=== PATIENT | male | born 1945 | race Two or more races ===

== ENCOUNTER 2025-06-04 07:52 | Emergency (ER) | payer OTHER, MEDICAID ==
[~2025-06-04] VITALS: Ht 175.3 cm; Wt 95.5 kg
--- NOTE | 2025-06-04 08:22 | ED.PDOC ---
Musculoskeletal HPI Comments 80-year-old male presents here with bleeding to his right knee. Patient had knee replacement to his right knee 2 days ago at outside facility does not know the name of the hospital. He states he was discharged home on same day with no issue. He states he has not been ambulatory. However yesterday he began to have some bleeding to the right knee. He did not call the physician. He states today there was significantly more bleeding and 911 was called. Patient is here by EMS. Patient not on any blood thinners. Reports no dizziness Chief Complaint: Lower Extremity Time Seen by MD: 08:08 Primary Care Provider: UNKNOWN Reviewed Notes: Drag Out Man Notes Allergies: Coded Allergies: NO KNOWN ALLERGIES (Unverified , 03/28/16) Information Source: Emergency Med Personnel Mode of Arrival: EMS Past Medical History PAST MEDICAL HISTORY: Denies Surgical History: Denies all surgeries Social History Smoker: Non-Smoker Alcohol: Denies ETOH Use Drugs: Denies Drug Use Lives In: Home Constitutional: denies: chills, diaphoresis, fatigue, fever, malaise, sweats, weakness, others EENTM: denies: blurred vision, double vision, ear bleeding, ear discharge, ear drainage, ear pain, ear ringing, eye pain, eye redness, hearing loss, mouth pain, mouth swelling, nasal discharge, nose bleeding, nose congestion, nose pain, photophobia, tearing, throat pain, throat swelling, voice changes, others Respiratory: denies: cough, hemoptysis, orthopnea, SOB at rest, shortness of breath, SOB with excertion, stridor, wheezing, others Cardiovascular: denies: chest pain, dizzy spells, diaphoresis, Dyspnea on exertion, edema, irregular heart beat, left arm pain, lightheadedness, palpitations, PND, syncope, others Gastrointestinal: denies: abdomen distended, abdominal pain, blood streaked bowels, constipated, diarrhea, dysphagia, difficulty swallowing, hematemesis, melena, nausea, poor appetite, poor fluid intake, rectal bleeding, rectal pain, vomiting, others Genitourinary: denies: burning, dysuria, flank pain, frequency, hematuria, incontinence, penile discharge, penile sore, pain, testicle pain, testicle swelling, urgency, others Neurological: denies: dizziness, fainting, headache, left sided numbness, left sided weakness, numbness, paresthesia, pre-existing deficit, right sided num bness, right sided weakness, seizure, speech problems, tingling, tremors, weakness, others Musculoskeletal: reports: joint pain (R knee); denies: back pain, gout, joint swelling, muscle pain, muscle stiffness, neck pain, others Integumetry: denies: bruises, change in color, change in hair/nails, dryness, laceration, lesions, lumps, rash, wounds, others Allergic/Immunocompromised: denies: Difficulty Healing, Frequent Infections, Hives, Itching, others Hematologic/Lymphatic: denies: anemia, blood clots, easy bleeding, easy brui sing, swollen glands, others Endocrine: denies: excessive hunger, excessive sweating, excessive thirst, ex cessive urination, flushing, intolerance to cold, intolerance to heat, unexplained weight gain, unexplained weight loss, others Psychiatric: denies: anxiety, bipolar disorder, depression, hopeless, panic disorder, schizophrenia, sleepless, suicidal, others All Other Systems: Reviewed and Negative Physical Exam General Appearance: No Apparent Distress, Normal HEENT: Normal ENT Inspection, Pharynx Normal, TMs Normal Neck: Full Range of Motion, Non-Tender, Normal, Normal Inspection Respiratory: Chest Non-Tender, Lungs Clear, No Accessory Muscle Use, No Respiratory Distress, Normal Breath Sounds Cardiovascular: No Edema, No JVD, No Murmur, No Gallop, Normal Peripheral Pulses, Regular Rate/Rhythm Breast Exam: Deferred Gastrointestinal: No Organomegaly, Non Tender, No Pulsatile Mass, Normal Bowel Sounds, Soft Genitalia: Deferred Pelvic: Deferred Rectal: Deferred Extremities: Normal inspection, Other (Right knee with surgical dressing in place. Able to visualize dark blood underneath the dressing. No active bleeding noted) Musculoskeletal : Apperance: Normal Neurologic: Alert, construction project mgr II-XII nml as Tested, No Motor Deficits, Normal Affect, Normal Mood, No Sensory Deficits Cerebellar Function: Normal Reflexes: Normal Skin: Dry, Normal Color, Warm Lymphatic: No Adenopathy Was a procedure done? Was a procedure done?: No Differential Diagnosis EXT Differential Diagnosis: Deep Vein Thrombosis Other Differential Diagnosis Hematoma, open surgical wound X-Ray, Labs, Meds, VS Vital Signs Date Time Temp Pulse Resp B/P (MAP) Pulse Ox O2 Delivery O2 Flow Rate FiO2 06/04/25 08:00 97.6 116 18 151/80 97 97.6 Lab Test 06/04/25 10:35 Range/Units White Blood Count 13.4 H 4.4-10.8 10^3/uL Red Blood Count 4.48 L 4.5-5.90 10^6/uL Hemoglobin 13.8 13.5-17.5 g/dL Hematocrit 41.3 41.0-53.0 % Mean Corpuscular Volume 92.4 80.0-100.0 fL Mean Corpuscular Hemoglobin 30.8 28.0-32.0 pg Mean Corpuscular Hemoglobin Concent 33.3 32.0-36.0 g/dL Red Cell Distribution Width 13.6 11.8-14.3 % Platelet Count 205 140-450 10^3/uL Mean Platelet Volume 8.6 6.9-10.8 fL Neutrophils (%) (Auto) 70.3 37.0-80.0 % Lymphocytes (%) (Auto) 18.2 10.0-50.0 % Monocytes (%) (Auto) 10.5 0.0-12.0 % Eosinophils (%) (Auto) 0.6 0.0-7.0 % Basophils (%) (Auto) 0.4 0.0-2.0 % Neutrophils # (Auto) 9.4 H 1.6-8.6 10 ^3/uL Lymphocytes # (Auto) 2.4 0.4-5.4 10 ^3/uL Monocytes # (Auto) 1.4 H 0-1.3 10 ^3/uL Eosinophils # (Auto) 0.1 0-0.8 10 ^3/uL Basophils # (Auto) 0.1 0-0.2 10 ^3/uL Nucleated Red Blood Cells 0.0 % Sodium Level 141 136-145 mmol/L Potassium Level 4.3 3.5-5.1 mmol/L Chloride Level 107 98-107 mmol/L Carbon Dioxide Level 25 20-31 mmol/L Anion Gap 9 5-15 Blood Urea Nitrogen 22 9-23 mg/dL Creatinine 1.66 H 0.700-1.30 mg/dL Glomerular Filtration Rate Calc 41 >90 mL/min BUN/Creatinine Ratio 13.3 10.0-20.0 Serum Glucose 124 H 74-106 mg/dL Calcium Level 9.1 8.7-10.4 mg/dL 80-year-old male presents here with a bleeding from his right surgical wound. He has a dressing in place from his surgery he had 2 days ago. However patient does not know which hospital he had this done. At this time he is given his niece's phone number and I have attempted to call her to get information on the physician that performed the surgery and the hospital but there has been no answer.. In the meantime I have CBC has been ordered. I am waiting on the appropriate dressing from the operating room before I can open up with the wound to determine if active bleeding is still there. CBC has returned with a hemoglobin of 13.8 which is appropriate. Demonstrates mild leukocytosis of 13 which is likely secondary to postop inflammation. Also has creatinine of 1.6 suspect this is likely chronic. At this time I was able to obtain the appropriate wound dressing from the operating room from the head housekeeper. Using sterile gloves and sterile procedure, the wound dressing was changed. There was no evidence of dehiscence of the wound, there was no active bleeding. Wound was cleaned and sterile dressing replaced. Patient tolerated well. At this time I have discharging the patient home. Advised him to follow up with the surgeon for continued bleeding if it occurs. Patient agreeable. Time of 1ST Reevaluation: 11:02 Reevaluation 1ST: Improved Patient Education/Counseling: Diagnosis, Treatment Family Education/Counseling: No Family Present Departure 1 Departure Time of Disposition: 11:33 Impression: Primary Impression: Post-op bleeding Qualified Codes: M96.830 - Postprocedural hemorrhage of a musculoskeletal structure following a musculoskeletal system procedure Disposition: 01 HOME / SELF CARE / HOMELESS Condition: Stable Additional Instructions: If you experience more bleeding please call the orthopedic surgeon that performed your surgery 1st. Please return back to the ER as needed if you are unable to reach her physician or symptoms worsen or persist. Discharged With: Self Critical Care Note Critical Care Time?: No Stability Stability form required: No Heart Score Heart Score: Heart Score Response (Comments) Value History N/A 0 EKG N/A 0 Age N/A 0 Risk Factors N/A 0 Troponin N/A 0 Total 0 I personally scribed for FRANCISCA VELA MD ([email or web address]) on 06/04/25 at 08:22. Electronically submitted by Fadi Null ([email or web address]). I personally scribed for FRANCISCA VELA MD ([email or web address]) on 06/04/25 at 10:15. Electronically submitted by Fadi Null ([email or web address]). FRANCISCA VELA MD Jun 04, 2025 08:22
[2025-06-04 11:09] LABS: Hematocrit 41.3 % (41.0-53.0); Hemoglobin 13.8 g/dL (13.5-17.5); Mean Corpuscular Hemoglobin 30.8 pg (28.0-32.0); Mean Corpuscular Volume 92.4 fL (80.0-100.0); Nucleated Red Blood Cells % 0.0 %
[2025-06-04 11:11] LABS: Chloride 107 mmol/L (98-107); Potassium 4.3 mmol/L (3.5-5.1); Sodium 141 mmol/L (136-145)
[2025-06-04 11:12] LABS: Anion Gap 9 (5-15); Calcium 9.1 mg/dL (8.7-10.4); Carbon Dioxide 25 mmol/L (20-31)
[2025-06-04 11:17] LABS: BUN/Creatinine Ratio 13.3 (10.0-20.0); Blood Urea Nitrogen 22 mg/dL (9-23); Glucose 124 mg/dL (74-106)
[2025-06-04 14:16] VITALS: BP 168/96; PULSE 102; RESP 18; TEMP 98.1; O2SAT 94
== END 2025-06-04 14:20 | disposition home or self-care (01) ==
LOC: EDBD 07:52 → ER 07:52
DX: M96.830 Postprocedural hemorrhage of a musculoskeletal structure following a musculoskeletal system procedure (principal); Z96.651 Presence of right artificial knee joint
CPT/HCPCS: 36415; 80048; 85025